=== PATIENT | female | born 1985 | race Caucasian/White ===

== ENCOUNTER 2020-01-25 03:05 | Inpatient (IN) | payer BC ==
[~2020-01-25 03:05] MED LIST: Bupivacaine 0.25% 10 ML SDV ONE
--- NOTE | 2020-01-25 08:06 | PCM.LDHP ---
<Amparo Holman R - Last Filed: 01/25/20 09:17> L&D History of Present Illness - General Date of Service: 01/25/20 Admit Problem/Dx: Admission Diagnosis/Problem Admission Diagnosis/Problem Source of Information: Patient History Limitations: Reports: No Limitations - History of Present Illness Introduction:: Lj is a 34-year-old white 6 para 3023 female at 39-3/7 weeks' gestational age with an REINALDO of 01/29/2020 who presents to labor and delivery for induction of labor on the morning of 01/25/2020. Upon examination, her cervix is 3 cm dilated, 80% effaced, -3 station, posterior position. Decision was made to start Pitocin and patient was in agreement. heart rate monitoring shows good variability, good accelerations, and no decelerations. 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 LMP was 04/24/2019 and she had regular cycles prior to becoming . Her average cycles were 31-35 days. No control was utilized at the time of conception. 5 prior outcomes: 01/28/2013 - spontaneous at 6 weeks;12/15/2013 - 8 lbs. 0 oz. baby girl named Svetlana, vaccuum extraction at 41 weeks, 20 hour labor; 10/27/2014 - spontaneous at 12 weeks; 02/11/2016 - 8 lbs. 10 oz. baby boy named Fausto, due to failure to progress and occiput posterior positioning at 40-5/7 weeks, 30 hour labor; 04/15/2018 - 7 lbs. 12 oz. baby boy named Reuben, at 39-1/7 weeks, 17 hour labor. history: LMP was 04/24/2019 with regular cycles. REINALDO of 01/29/2020 supported by early ultrasound at 6-4/7 weeks' gestational age on . Another ultrasound was performed at 20-4/7 weeks' gestational age on 09/16/2019 and showed adequate growth with no abnormalities. Fundal height was consistent with dating throughout the . Lj plans to breast feed after delivery. She is hesitant about an epidural, but would like one if pain becomes intolerable. High risk identified by long distance from hospital, history of miscarriage x2, history of followed by successful . Labs: Blood type is A positive with negative antibody screen. Initial labs showed hemoglobin of 12.4 g/dL and platelets of 203,0000. Rubella nonimmune. RPR was reactive, but follow-up T. pallidum was negative. Gonorrhea and chlamydia screens were negative. Hepatitis B surface antigen and HIV were negative. 1 hour GTT was 118. Second trimester labs showed hemoglobin of 11.3 g/dL and platelets of 171,000. GBS was negative. Past medical history: 1. Eczema Past surgical history: 1. Oral surgery - 2006 2. S/P section - 2015 Allergies: NKDA Current medications: 1. /Iron oral tablet daily 2. Folic acid 400 mcg PO daily Family history: Mother is alive and has a history of hypertension. Father is alive and has a history of hypercholesterolemia. She has 2 brothers who are alive and well. Maternal grandmother is alive and has dementia. She also had a history of type 2 diabetes. Maternal grandfather is from aspiration pneumonia and/or surgical complications at age 82, otherwise healthy. Paternal grandmother in her 50s from breast/ovarian cancer. Paternal grandfather in his 60s due to complications from chronic alcohol use. No family history of bleeding/clotting disorders, anesthesia-related disorders, or -related problems. Social history: Lj is to Giovanni Webber. They live in [place], [place]. She has a college degree and currently works as a teacher. No tobacco, alcohol, or illicit substance use during . - Related Data Allergies/Adverse Reactions: Allergies Allergy/AdvReac Type Severity Reaction Status Date / Time No Known Allergies Allergy Verified 01/25/20 08:27 Home Medications: Home Meds Ferrous Sulfate [Iron] 325 mg PO DAILY 04/14/18 [History] No122/Iron/Folic Acid [ Multi Tablet] 1 each PO DAILY 04/14/18 [History] Past Medical History - Past Health History Medical/Surgical History: Denies Medical/Surgical History Cardiovascular History: Reports: None Respiratory History: Reports: None Gastrointestinal History: Reports: GERD UI [employer] DEVELOPER History: Reports: , Spontaneous Hematologic History: Reports: Anemia Oncologic (Cancer) History: Reports: None Dermatologic History: Reports: Eczema - Past Surgical History HEENT Surgical History: Reports: Oral Surgery Female Surgical History: Reports: Section Social & Family History - Family History Family Medical History: Noncontributory H&P Review of Systems - Review of Systems: Review Of Systems: See Below General: Reports: No Symptoms HEENT: Reports: No Symptoms Pulmonary: Reports: No Symptoms Cardiovascular: Reports: No Symptoms Gastrointestinal: Reports: No Symptoms Genitourinary: Reports: No Symptoms Musculoskeletal: Reports: No Symptoms L&D Exam - Exam Exam: See Below - OB Specific Fundal Height In cm: 39 Contraction Intensity: Mild Movement: Active Heart Tones: Present Heart Rate (FHR) Variability: Moderate (6-25 bmp) Presentation: Vertex - Ribeiro Score Ribeiro Score Cervix Position: Posterior Ribeiro Score Consistency: Soft Ribeiro Score Effacement: >80% Ribeiro Score Dilation: 3-4 cm Ribeiro Score 's Station: -3 Ribeiro Score Total: 7 - Exam General: Alert, Oriented HEENT: Conjunctiva Clear, EOMI, Mucosa Moist & [place], Posterior Pharynx Clear Neck: Supple, Trachea Midline Lungs: Clear to Auscultation, Normal Respiratory Effort Cardiovascular: Regular Rate, Regular Rhythm GI/Abdominal Exam: Soft, Non-Tender, Other (gravid abdomen) Genitourinary: Normal external exam, Normal bimanual exam, Cervical dilitation. No: Cervical discharge, Cervix motion tenderness Back Exam: Normal Inspection Extremities: Normal Inspection, Normal Capillary Refill, Pedal Edema (+trace) Skin: Warm, Dry, Intact - Patient Data Result Diagrams: 01/25/20 08:35 Assessment/Plan Comment:: Assessment: 1Adelfo Calhoun is a 34-year-old white 6 para 3023 female at 39-3/7 weeks' gestational age with an REINALDO of 01/29/2020 who presents for induction of labor 2. Risk factors for : long distance from hospital, history of miscarriage x2, history of due to failure to progress followed by successful 3. GBS negative 4. Rubella nonimmune 5. RPR reactive, T. pallidum nonreactive 6. Patient would like to attempt delivery without an epidural, but she is open to receiving one if pain becomes intolerable. Plan: 1. Induction with Pitocin is discussed including risks and benefits. Patient voices understanding and wishes to proceed. 2. Risks and benefits of explained and patient is in agreement. 3. Regular diet. 4. Routine labor care. 5. RPR and CBC upon admission. 6. Epidural available if patient so chooses. 7. MMR vaccination after delivery. 8. Anticipate vaginal delivery after section. <Jcarlos Leahy - Last Filed: 01/25/20 23:51> L&D History of Present Illness - General Admit Problem/Dx: Patient Status Order with Admit Dx/Problem 01/25/20 08:08 Patient Status [ADT] Routine Admission Diagnosis/Problem Admission Diagnosis/Problem H&P Review of Systems - Review of Systems: Review Of Systems: See Below L&D Exam - Exam Exam: See Below - Vital Signs Vital Signs: Last Vital Signs Temp 36.7 C 01/25/20 08:08 Pulse 80 01/25/20 08:08 Resp 14 01/25/20 08:08 BP 109/70 01/25/20 08:08 Pulse Ox 97 01/25/20 08:08 - Patient Data Lab Results Last 24 hrs: Laboratory Results - last 24 hr 01/25/20 01/25/20 01/25/20 Range/Units 08:20 08:35 08:35 WBC 7.72 (3.98-10.04) K/mm3 RBC 3.68 L (3.98-5.22) M/mm3 Hgb 11.3 (11.2-15.7) gm/dl Hct 34.4 (34.1-44.9) % MCV 93.5 (79.4-94.8) fl MCH 30.7 (25.6-32.2) pg MCHC 32.8 (32.2-35.5) g/dl RDW Std Deviation 49.1 H (36.4-46.3) fL Plt Count 148 L (182-369) K/mm3 MPV 10.7 (9.4-12.3) fl Neut % (Auto) 75.7 H (34.0-71.1) % Lymph % (Auto) 17.9 L (19.3-51.7) % [place] % (Auto) 5.4 (4.7-12.5) % Eos % (Auto) 0.8 (0.7-5.8) Baso % (Auto) 0.1 (0.1-1.2) % Neut # (Auto) 5.84 (1.56-6.13) K/mm3 Lymph # (Auto) 1.38 (1.18-3.74) K/mm3 [place] # (Auto) 0.42 H (0.24-0.36) K/mm3 Eos # (Auto) 0.06 (0.04-0.36) K/mm3 Baso # (Auto) 0.01 (0.01-0.08) K/mm3 RPR Non-reactive (NONREACTIVE) COVID-19 (KARIME) Negative (NEGATIVE) Blood Type Gel Antibody Screen 01/25/20 Range/Units 08:35 WBC (3.98-10.04) K/mm3 RBC (3.98-5.22) M/mm3 Hgb (11.2-15.7) gm/dl Hct (34.1-44.9) % MCV (79.4-94.8) fl MCH (25.6-32.2) pg MCHC (32.2-35.5) g/dl RDW Std Deviation (36.4-46.3) fL Plt Count (182-369) K/mm3 MPV (9.4-12.3) fl Neut % (Auto) (34.0-71.1) % Lymph % (Auto) (19.3-51.7) % [place] % (Auto) (4.7-12.5) % Eos % (Auto) (0.7-5.8) Baso % (Auto) (0.1-1.2) % Neut # (Auto) (1.56-6.13) K/mm3 Lymph # (Auto) (1.18-3.74) K/mm3 [place] # (Auto) (0.24-0.36) K/mm3 Eos # (Auto) (0.04-0.36) K/mm3 Baso # (Auto) (0.01-0.08) K/mm3 RPR (NONREACTIVE) COVID-19 (KARIME) (NEGATIVE) Blood Type A POSITIVE Gel Antibody Screen Negative Result Diagrams: 01/25/20 08:35 Problem List Initiated/Reviewed/Updated: Yes Orders Last 24hrs: Active Orders 24 hr Category Date Time Status Patient Status [ADT] Routine ADT 01/25/20 08:08 Active Activity as Tolerated [RC] PFP Care 01/25/20 08:08 Active Communication Order [RC] ASDIRECTED Care 01/25/20 08:08 Active Communication Order [RC] ASDIRECTED Care 01/25/20 09:31 Active Cooling Warming Measures [RC] ASDIRECTED Care 01/25/20 09:31 Active Heart Tones [RC] ASDIRECTED Care 01/25/20 08:09 Active Notify Provider [RC] ASDIRECTED Care 01/25/20 09:31 Active Notify Provider [RC] ASDIRECTED Care 01/25/20 09:31 Active Notify Provider [RC] PFP Care 01/25/20 08:08 Active Notify Provider [RC] PRN Care 01/25/20 08:08 Active Oxygen Therapy [RC] ASDIRECTED Care 01/25/20 09:31 Active Peripheral IV Care [RC] . DIRECTED Care 01/25/20 08:09 Active Pulse Oximetry [RC] ASDIRECTED Care 01/25/20 09:31 Active Urinary Catheter Assessment [RC] ASDIRECTED Care 01/25/20 08:08 Active Vital Signs [RC] .PRN Care 01/25/20 09:31 Active Vital Signs [RC] PER UNIT ROUTINE Care 01/25/20 08:08 Active Regular Diet [DIET] Diet 01/25/20 Lunch Active Acetaminophen [Tylenol] Med 01/25/20 08:08 Active 650 mg PO Q4H PRN Bupivacaine/fentaNYL/NS [fentaNYL/Bupivacaine/NS 2 MCG- Med 01/25/20 09:31 Active 0.125% 100 ML] 100 ml EPIDUR ASDIRECTED PRN Lactated Ringers [Ringers, Lactated] 1,000 ml Med 01/25/20 08:15 Active IV ASDIRECTED Nalbuphine [Nubain] Med 01/25/20 08:08 Active 10 mg IVPUSH Q2H PRN Ondansetron [Zofran] Med 01/25/20 08:08 Active 4 mg IVPUSH Q4H PRN Oxytocin/Lactated Ringers [Pitocin in LR 10 Units/1,000 Med 01/25/20 08:15 Active ML] 10 unit in 1,000 ml IV .CONTINUOUS Oxytocin/Lactated Ringers [Pitocin in LR 10 Units/1,000 Med 01/25/20 08:15 Active ML] 10 unit in 1,000 ml IV TITRATE Sodium Chloride 0.9% [Saline Flush] Med 01/25/20 08:08 Active 10 ml FLUSH ASDIRECTED PRN diphenhydrAMINE [Benadryl] Med 01/25/20 09:31 Active 25 mg IVPUSH Q6H PRN ePHEDrine [ePHEDrine sulfate] Med 01/25/20 09:31 Active 5 mg IVPUSH ASDIRECTED PRN fentaNYL [Sublimaze] Med 01/25/20 09:31 Active 100 mcg EPIDUR Q3H PRN Electronic Heart Tones Ext w TOCO [WOMSER] Oth 01/25/20 08:08 Ordered Routine Electronic Heart Tones Internal [WOMSER] Per Unit Oth 01/25/20 08:08 Ordered Routine Peripheral IV Insertion Adult [OM.PC] Routine Oth 01/25/20 08:08 Ordered Resuscitation Status Routine Resus Stat 01/25/20 08:08 Ordered Medication Orders Acetaminophen (Tylenol) 650 mg PO Q4H PRN PRN Reason: Pain (Mild 1-3) and fever Diphenhydramine HCl (Benadryl) 25 mg IVPUSH Q6H PRN PRN Reason: pruritis Ephedrine Sulfate (Ephedrine Sulfate) 5 mg IVPUSH ASDIRECTED PRN PRN Reason: Hypotension Fentanyl (Sublimaze) 100 mcg EPIDUR Q3H PRN PRN Reason: Pain Last Admin: 01/25/20 15:10 Dose: 100 mcg Documented by: [id number] Fentanyl/Bupivacaine HCl (Fentanyl/Bupivacaine/Ns 2 Mcg-0.125% 100 Ml) 100 ml EPIDUR ASDIRECTED PRN PRN Reason: Pain Last Admin: 01/25/20 15:11 Dose: 100 ml Documented by: [email or web address] Oxytocin/Lactated Ringer's (Pitocin In Lr 10 Units/1,000 Ml) 10 unit in 1,000 mls @ 12 mls/hr IV TITRATE IVELISSE; Protocol Last Titration: 01/25/20 20:45 Dose: 13 munits/min, 78 mls/hr Documented by: Titration: 01/25/20 20:15 Dose: 12 munits/min, 72 mls/hr Documented by: Titration: 01/25/20 19:30 Dose: 11 munits/min, 66 mls/hr Documented by: Titration: 01/25/20 18:30 Dose: 10 munits/min, 60 mls/hr Documented by: Titration: 01/25/20 17:32 Dose: 8 munits/min, 48 mls/hr Documented by: [id number] Titration: 01/25/20 14:56 Dose: 6 munits/min, 36 mls/hr Documented by: Titration: 01/25/20 11:45 Dose: 10 munits/min, 60 mls/hr Documented by: Titration: 01/25/20 11:00 Dose: 8 munits/min, 48 mls/hr Documented by: Titration: 01/25/20 10:15 Dose: 6 munits/min, 36 mls/hr Documented by: [email or web address] Titration: 01/25/20 09:40 Dose: 4 munits/min, 24 mls/hr Documented by: [id number] Admin: 01/25/20 08:33 Dose: 2 munits/min, 12 mls/hr Documented by: [id number] Oxytocin/Lactated Ringer's (Pitocin In Lr 10 Units/1,000 Ml) 10 unit in 1,000 mls @ 500 mls/hr IV .CONTINUOUS IVELISSE; Protocol Lactated Ringer's (Ringers, Lactated) 1,000 mls @ 100 mls/hr IV ASDIRECTED IVELISSE Last Admin: 01/25/20 21:17 Dose: 100 mls/hr Documented by: Infusion: 01/25/20 21:17 Dose: 100 mls/hr Documented by: Admin: 01/25/20 17:31 Dose: 100 mls/hr Documented by: [id number] Infusion: 01/25/20 17:31 Dose: 100 mls/hr Documented by: Admin: 01/25/20 15:09 Dose: 100 mls/hr Documented by: Infusion: 01/25/20 15:09 Dose: 100 mls/hr Documented by: [id number] Admin: 01/25/20 08:33 Dose: 100 mls/hr Documented by: [id number] Nalbuphine HCl (Nubain) 10 mg IVPUSH Q2H PRN PRN Reason: Pain Ondansetron HCl (Zofran) 4 mg IVPUSH Q4H PRN PRN Reason: Nausea/Vomiting Sodium Chloride (Saline Flush) 10 ml FLUSH ASDIRECTED PRN PRN Reason: Keep Vein Open
[2020-01-25] MEDS ORDERED: Nalbuphine 10 MG/ML Syringe IVPUSH PRN (08:08)
[2020-01-25] MEDS ORDERED: Acetaminophen 325 MG Tab PO PRN (08:08)
[2020-01-25] MEDS ORDERED: Lidocaine 1% 50 ML MDV INJECT ONE (08:08)
[2020-01-25] MEDS ORDERED: Ondansetron 4 MG/2 ML SDV IVPUSH PRN (08:08)
[2020-01-25] MEDS ORDERED: Sodium Chloride 0.9% 10 ML Syringe FLUSH PRN (08:08)
[2020-01-25] MEDS ORDERED: Oxytocin/Lactated Ringers 10 UNIT/1,000 ML BAG IV SCH ×2 (08:15)
[2020-01-25] MEDS: Lactated Ringers 1,000 ML IV SCH ×4 (08:33→21:17)
[2020-01-25] MEDS ORDERED: ePHEDrine 50 MG/ML SDV IVPUSH PRN (09:31)
[2020-01-25] MEDS ORDERED: Bupivacaine/fentaNYL/NS 100 ML Bag EPIDUR PRN (09:31)
[2020-01-25] MEDS ORDERED: diphenhydrAMINE 50 MG/ML SDV IVPUSH PRN (09:31)
[2020-01-25] MEDS ORDERED: fentaNYL 100 MCG/2 ML SDV EPIDUR PRN (09:31)
--- NOTE | 2020-01-25 15:35 | PCM.PREANE ---
Preanesthetic Assessment - Procedure Proposed Procedure: Epidural - Anesthesia/Transfusion/Family Hx Anesthesia History: Prior Anesthesia Without Reaction Family History of Anesthesia Reaction: No Transfusion History: No Prior Transfusion(s) - Review of Systems General: Fatigue Pulmonary: No Symptoms Cardiovascular: No Symptoms Gastrointestinal: Abdominal Pain (labor) Neurological: No Symptoms Other: Reports: None - Physical Assessment Vital Signs: Last Vital Signs Temp 36.7 C 01/25/20 08:08 Pulse 80 01/25/20 08:08 Resp 14 01/25/20 08:08 BP 109/70 01/25/20 08:08 Pulse Ox 97 01/25/20 08:08 Height: 1.68 m Weight: 81.828 kg ASA Class: 2 Mental Status: Alert & Oriented x3 Airway Class: Mallampati = 1 Dentition: Reports: Normal Dentition Thyro-Mental Finger Breadths: 3 Mouth Opening Finger Breadths: 3 ROM/Head Extension: Full Lungs: Clear to Auscultation, Normal Respiratory Effort Cardiovascular: Regular Rate, Regular Rhythm - Lab Values: Laboratory Last Values WBC 7.72 K/mm3 (3.98-10.04) 01/25/20 08:35 RBC 3.68 M/mm3 (3.98-5.22) L 01/25/20 08:35 Hgb 11.3 gm/dl (11.2-15.7) 01/25/20 08:35 Hct 34.4 % (34.1-44.9) 01/25/20 08:35 MCV 93.5 fl (79.4-94.8) 01/25/20 08:35 MCH 30.7 pg (25.6-32.2) 01/25/20 08:35 MCHC 32.8 g/dl (32.2-35.5) 01/25/20 08:35 RDW Std Deviation 49.1 fL (36.4-46.3) H 01/25/20 08:35 Plt Count 148 K/mm3 (182-369) L 01/25/20 08:35 MPV 10.7 fl (9.4-12.3) 01/25/20 08:35 Neut % (Auto) 75.7 % (34.0-71.1) H 01/25/20 08:35 Lymph % (Auto) 17.9 % (19.3-51.7) L 01/25/20 08:35 [place] % (Auto) 5.4 % (4.7-12.5) 01/25/20 08:35 Eos % (Auto) 0.8 (0.7-5.8) 01/25/20 08:35 Baso % (Auto) 0.1 % (0.1-1.2) 01/25/20 08:35 Neut # (Auto) 5.84 K/mm3 (1.56-6.13) 01/25/20 08:35 Lymph # (Auto) 1.38 K/mm3 (1.18-3.74) 01/25/20 08:35 [place] # (Auto) 0.42 K/mm3 (0.24-0.36) H 01/25/20 08:35 Eos # (Auto) 0.06 K/mm3 (0.04-0.36) 01/25/20 08:35 Baso # (Auto) 0.01 K/mm3 (0.01-0.08) 01/25/20 08:35 COVID-19 (KARIME) Negative (NEGATIVE) 01/25/20 08:20 Blood Type A POSITIVE 01/25/20 08:35 Gel Antibody Screen Negative 01/25/20 08:35 - Allergies Allergies/Adverse Reactions: Allergies Allergy/AdvReac Type Severity Reaction Status Date / Time No Known Allergies Allergy Verified 01/25/20 08:27 - Anesthesia Plan Pre-Op Medication Ordered: None - Acknowledgements Anesthesia Type Planned: Epidural Pt an Appropriate Candidate for the Planned Anesthesia: Yes Alternatives and Risks of Anesthesia Discussed w Pt/Guardian: Yes Pt/Guardian Understands and Agrees with Anesthesia Plan: Yes PreAnesthesia Questionnaire - Past Health History Medical/Surgical History: Denies Medical/Surgical History Cardiovascular History: Reports: None Respiratory History: Reports: None Gastrointestinal History: Reports: GERD [employer]KER History: Reports: , Spontaneous Hematologic History: Reports: Anemia Oncologic (Cancer) History: Reports: None Dermatologic History: Reports: Eczema - Past Surgical History HEENT Surgical History: Reports: Oral Surgery Female Surgical History: Reports: Section - SUBSTANCE USE Smoking Status *Q: Never Smoker Second Hand Smoke Exposure: No Recreational Drug Use History: No - HOME MEDS Home Medications: Home Meds Ferrous Sulfate [Iron] 325 mg PO DAILY 04/14/18 [History] No122/Iron/Folic Acid [ Multi Tablet] 1 each PO DAILY 04/14/18 [History] - CURRENT (IN HOUSE) MEDS Current Meds: Current Medications Acetaminophen (Tylenol) 650 mg PO Q4H PRN PRN Reason: Pain (Mild 1-3) and fever Diphenhydramine HCl (Benadryl) 25 mg IVPUSH Q6H PRN PRN Reason: pruritis Ephedrine Sulfate (Ephedrine Sulfate) 5 mg IVPUSH ASDIRECTED PRN PRN Reason: Hypotension Fentanyl (Sublimaze) 100 mcg EPIDUR Q3H PRN PRN Reason: Pain Last Admin: 01/25/20 15:10 Dose: 100 mcg Documented by: Fentanyl/Bupivacaine HCl (Fentanyl/Bupivacaine/Ns 2 Mcg-0.125% 100 Ml) 100 ml EPIDUR ASDIRECTED PRN PRN Reason: Pain Last Admin: 01/25/20 15:11 Dose: 100 ml Documented by: Oxytocin/Lactated Ringer's (Pitocin In Lr 10 Units/1,000 Ml) 10 unit in 1,000 mls @ 12 mls/hr IV TITRATE IVELISSE; Protocol Last Admin: 01/25/20 08:33 Dose: 2 munits/min, 12 mls/hr Documented by: Oxytocin/Lactated Ringer's (Pitocin In Lr 10 Units/1,000 Ml) 10 unit in 1,000 mls @ 500 mls/hr IV .CONTINUOUS IVELISSE; Protocol Lactated Ringer's (Ringers, Lactated) 1,000 mls @ 100 mls/hr IV ASDIRECTED IVELISSE Last Admin: 01/25/20 15:09 Dose: 100 mls/hr Documented by: Nalbuphine HCl (Nubain) 10 mg IVPUSH Q2H PRN PRN Reason: Pain Ondansetron HCl (Zofran) 4 mg IVPUSH Q4H PRN PRN Reason: Nausea/Vomiting Sodium Chloride (Saline Flush) 10 ml FLUSH ASDIRECTED PRN PRN Reason: Keep Vein Open Discontinued Medications Lidocaine HCl (Xylocaine 1%) 50 ml INJECT ONETIME ONE Stop: 01/25/20 08:09
--- NOTE | 2020-01-26 00:03 | PCM.SN.2 ---
- Free Text/Narrative Note: Delivery note: Lj is a 34-year-old white 6 para 3023 female at 39-3/7 weeks' gestational age with an REINALDO of 01/29/2020 who presented to labor and delivery for induction of labor on the morning of 01/25/2020. When Pitocin induction of labor and after approximately 4 hours but they had done well applied to the cervix. At that time she underwent artificial rupture membranes with resultant clear amniotic fluid. Contractions develop and Pitocin actually was decreased. She made slow but steady progress and at approximately 200 hours on 01/25/2020 she became completely dilated and started pushing. The progress is very slow and it was determined that the baby was in a right occiput posterior position. After approximately 1 hour and 20 minutes discussion was held with her as to using vacuum extraction to facilitate delivery. The risks and benefits were discussed with her. She had a previous vacuum extraction delivery. She aware of these risks and gave verbal consent. Vacuum extraction delivery was then performed and with 1 contraction the baby delivered at 2322 hrs. on 01/25/2020. Nuchal cord was noted x1, was loose and was reduced over the baby's head. The anterior shoulder was then delivered as was the posterior shoulder. The baby was completely delivered and placed on mom's abdomen. The cord was allowed to pulsate for 1 to 1-1/2 minutes and then was clamped x2 and cut by the baby's father Giovanni. The Pitocin was increased to 500 cc an hour to facilitate increase in uterine tone decrease likelihood of bleeding. The baby's name is Zenon Obando. After allowing the cord to pulsate it was then clamped and 3 vessels were noted. Cord blood was obtained. He was taken to the monitor for further evaluation and stimulation. Baby weighed 4120 g (9 pounds 1.3 ounces), was 21.0 inches in length and had Apgars of 6 and 9. The patient was noted to have a second-degree perineal laceration which was repaired with 3-0 Monocryl in a routine fashion. Epidural analgesia was used for perineal laceration repair anesthesia. Patient tolerated the procedure well. Placenta delivered at 2335 hrs. in a Bermudez presentation, appeared intact and complete and was discarded per patient desire. Was found to be firm. Estimated blood loss was 200 cc. Patient plans to breast-feed. Condition: Good
[2020-01-26] MEDS ORDERED: Measles, Mumps & Rubella Vaccine 0.5 ML SDV SUBCUT ONE (00:38)
[2020-01-26] MEDS ORDERED: Acetaminophen 325 MG Tab PO PRN (00:38)
[2020-01-26] MEDS ORDERED: Benzocaine/Menthol 20%-0.5% Spray 56 GM Canister TOP PRN (00:38)
[2020-01-26] MEDS ORDERED: Docusate Sodium 100 MG Cap PO PRN (00:38)
[2020-01-26] MEDS ORDERED: Witch Hazel Medicated Pads 40/Jar TOP PRN (00:38)
[2020-01-26] MEDS: Lactated Ringers 1,000 ML IV SCH (00:57)
[2020-01-26] MEDS: Ibuprofen 600 MG Tab PO PRN ×3 (00:59→13:09)
--- NOTE | 2020-01-26 07:41 | PCM48HPAN ---
Post Anesthesia Note - EVALUATION WITHIN 48HRS OF ANESTHETIC Vital Signs in Normal Range: Yes Patient Participated in Evaluation: Yes Respiratory Function Stable: Yes Airway Patent: Yes Cardiovascular Function Stable: Yes Hydration Status Stable: Yes Pain Control Satisfactory: Yes Nausea and Vomiting Control Satisfactory: Yes Mental Status Recovered: Yes Vital Signs: Last Vital Signs Temp 36.7 C 01/26/20 05:46 Pulse 61 01/26/20 05:46 Resp 14 01/26/20 05:46 BP 110/68 01/26/20 05:46 Pulse Ox 96 01/26/20 05:46
[2020-01-26] MEDS: Prenatal Multivitamin with Calcium/Folic Acid/Iron Tab PO SCH (14:42)
--- NOTE | 2020-01-26 16:57 | PCM.SN.2 ---
- Free Text/Narrative Note: note: Patient is doing well in the period. Minimal lochia, voiding well, ambulated without problems. Nursing without concerns. Patient is afebrile, vital signs are stable Abdomen is flat, soft, uterus is below the umbilicus and is firm and nontender. Legs are nontender. Assessment: recovery going well. Plan: Routine care. Patient be discharged home within the next 24-48 hours.
--- NOTE | 2020-01-27 06:23 | PCM.DCSUM1 ---
Discharge Summary - Hospital Course Free Text/Narrative:: Lj is a 34-year-old white 6 para 3023 female at 39-3/7 weeks' gestational age with an REINALDO of 01/29/2020 who presented to labor and delivery for induction of labor on the morning of 01/25/2020. When Pitocin induction of labor and after approximately 4 hours but they had done well applied to the cervix. At that time she underwent artificial rupture membranes with resultant clear amniotic fluid. Contractions develop and Pitocin actually was decreased. She made slow but steady progress and at approximately 200 hours on 01/25/2020 she became completely dilated and started pushing. The progress is very slow and it was determined that the baby was in a right occiput posterior position. After approximately 1 hour and 20 minutes discussion was held with her as to using vacuum extraction to facilitate delivery. The risks and benefits were discussed with her. She had a previous vacuum extraction delivery. She aware of these risks and gave verbal consent. Vacuum extraction delivery was then performed and with 1 contraction the baby d elivered at 2322 hrs. on 01/25/2020. Nuchal cord was noted x1, was loose and was reduced over the baby's head. The anterior shoulder was then delivered as was the posterior shoulder. The baby was completely delivered and placed on mom's abdomen. The cord was allowed to pulsate for 1 to 1-1/2 minutes and then was clamped x2 and cut by the baby's father Giovanni. The Pitocin was increased to 500 cc an hour to facilitate increase in uterine tone decrease likelihood of bleeding. The baby's name is Zenon Obando. After allowing the cord to pulsate it was then clamped and 3 vessels were noted. Cord blood was obtained. He was taken to the monitor for further evaluation and stimulation. Baby weighed 4120 g (9 pounds 1.3 ounces), was 21.0 inches in length and had Apgars of 6 and 9. The patient was noted to have a second-degree perineal laceration which was repaired with 3-0 Monocryl in a routine fashion. Epidural analgesia was used for perineal laceration repair anesthesia. Patient tolerated the procedure well. Placenta delivered at 2335 hrs. in a Bermudez presentation, appeared intact and complete and was discarded per patient desire. Was found to be firm. Estimated blood loss was 200 cc. Patient has done just fine. She is ambulating well, has minimal lochia, is nursing without problems and is voiding without concerns. Patient is desiring discharge home. Condition: Good Diagnosis: Stroke: No - Discharge Data Discharge Date: 01/27/20 Discharge Disposition: Home, Self-Care 01 Condition: Good - Referral to Home Health Primary Care Physician: Jcarlos Leahy MD - Patient Instructions Diet: Regular Diet as Tolerated (Nursing diet with increased calories and calcium as recommended) Activity: As Tolerated (No intercourse or tampons until bleeding resolves) Driving: May Drive Today Showering/Bathing: May Shower Showering/Bathing, Other: May take a bath Notify Provider of: Fever, Increased Pain, Swelling and Redness, Nausea and/or Vomiting - Discharge Plan Home Medications: Home Meds Ferrous Sulfate [Iron] 325 mg PO DAILY 04/14/18 [History] No122/Iron/Folic Acid [ Multi Tablet] 1 each PO DAILY 04/14/18 [History] Acetaminophen [Tylenol] 650 mg PO Q4H PRN tablet 01/27/20 [Rx] Ibuprofen [Motrin] 600 mg PO Q4H PRN tablet 01/27/20 [Rx] Referrals: Jcarlos Leahy MD [Primary Care Provider] - - Discharge Summary/Plan Comment DC Time >30 min.: No Discharge Summary/Plan Comment: Discharge instructions: 1. Discharge home 2. Diet, activity and follow-up discussed with patient. Recommend nursing diet with increased calories and calcium. 3. Precautions given concern increased pain, bleeding, temperature, signs/symptoms of DVT/PE. 4. Medications per home medication was printed, discussed with and given to the patient. 5. Return to clinic-Dr. Leahy-[place], [place] in approximately 4 weeks. Diagnosis: Term -delivered Condition: Good - Patient Data Vitals - Most Recent: Last Vital Signs Temp 36.7 C 01/27/20 03:51 Pulse 55 L 01/27/20 03:51 Resp 14 01/27/20 03:51 BP 115/65 01/27/20 03:51 Pulse Ox 96 01/27/20 03:51 Weight - Most Recent: 81.828 kg I&O - Last 24 hours: Intake & Output 01/26/20 01/26/20 01/27/20 14:59 22:59 06:59 Intake Total 120 240 Balance 120 240 Med Orders - Current: Current Medications Acetaminophen (Tylenol) 650 mg PO Q4H PRN PRN Reason: mild pain or fever Benzocaine/Menthol (Dermoplast Pain Relief [place]) 0 gm TOP ASDIRECTED PRN PRN Reason: Perineal Comfort Measure Last Admin: 01/26/20 00:58 Dose: 1 canister Documented by: Docusate Sodium (Colace) 100 mg PO BID PRN PRN Reason: Constipation Last Admin: 01/26/20 05:58 Dose: 100 mg Documented by: Ibuprofen (Motrin) 600 mg PO Q4H PRN PRN Reason: Mild pain or fever Last Admin: 01/26/20 13:09 Dose: 600 mg Documented by: Prenat Multivit/[place]/Iron/Folic Ac ( Plus Iron) 1 each PO DAILY IVELISSE Last Admin: 01/26/20 14:42 Dose: 1 each Documented by: Armaan Stewart (Ethan) 1 pad TOP ASDIRECTED PRN PRN Reason: Perineal Comfort Measure Last Admin: 01/26/20 00:58 Dose: 1 tub Documented by: Discontinued Medications Acetaminophen (Tylenol) 650 mg PO Q4H PRN PRN Reason: Pain (Mild 1-3) and fever Bupivacaine HCl (Sensorcaine-Mpf 0.25%) 10 ml .ROUTE .STK-MED ONE Stop: 01/25/20 00:01 Diphenhydramine HCl (Benadryl) 25 mg IVPUSH Q6H PRN PRN Reason: pruritis Ephedrine Sulfate (Ephedrine Sulfate) 5 mg IVPUSH ASDIRECTED PRN PRN Reason: Hypotension Fentanyl (Sublimaze) 100 mcg EPIDUR Q3H PRN PRN Reason: Pain Last Admin: 01/25/20 15:10 Dose: 100 mcg Documented by: Fentanyl/Bupivacaine HCl (Fentanyl/Bupivacaine/Ns 2 Mcg-0.125% 100 Ml) 100 ml EPIDUR ASDIRECTED PRN PRN Reason: Pain Last Admin: 01/25/20 15:11 Dose: 100 ml Documented by: Oxytocin/Lactated Ringer's (Pitocin In Lr 10 Units/1,000 Ml) 10 unit in 1,000 mls @ 12 mls/hr IV TITRATE IVELISSE; Protocol Last Titration: 01/25/20 21:30 Dose: 14 munits/min, 84 mls/hr Documented by: Oxytocin/Lactated Ringer's (Pitocin In Lr 10 Units/1,000 Ml) 10 unit in 1,000 mls @ 500 mls/hr IV .CONTINUOUS IVELISSE; Protocol Lactated Ringer's (Ringers, Lactated) 1,000 mls @ 100 mls/hr IV ASDIRECTED IVELISSE Last Admin: 01/26/20 00:57 Dose: 100 mls/hr Documented by: Lidocaine HCl (Xylocaine 1%) 50 ml INJECT ONETIME ONE Stop: 01/25/20 08:09 Last Admin: 01/26/20 12:30 Dose: Not Given Documented by: Measles/Mumps/Rubella Vaccine Live (M-M-R Ii Vaccine) 0.5 ml SUBCUT .ONCE ONE Stop: 01/26/20 00:39 Last Admin: 01/26/20 01:02 Dose: Not Given Documented by: Nalbuphine HCl (Nubain) 10 mg IVPUSH Q2H PRN PRN Reason: Pain Ondansetron HCl (Zofran) 4 mg IVPUSH Q4H PRN PRN Reason: Nausea/Vomiting Sodium Chloride (Saline Flush) 10 ml FLUSH ASDIRECTED PRN PRN Reason: Keep Vein Open
[2020-01-27 14:33] VITALS: BP 131/74; PULSE 70
[2020-01-27] MEDS: Prenatal Multivitamin with Calcium/Folic Acid/Iron Tab PO SCH (14:51)
== END 2020-01-27 10:25 | disposition home or self-care (01) | DRG 560 ==
LOC: JD.OB 07:01 → OBSVTOIN 23:46 → JD.OB 23:58
PROVIDERS: ADMIT Obstetrics & Gynecology; ATTEND Obstetrics & Gynecology
PROC: 10D07Z6 Extraction of Products of Conception, Vacuum, Via Natural or Artificial Opening (ICD-10-PCS; principal; 2020-01-25)
PROC: 10907ZC Drainage of Amniotic Fluid, Therapeutic from Products of Conception, Via Natural or Artificial Opening (ICD-10-PCS; 2020-01-25)
PROC: 3E033VJ Introduction of Other Hormone into Peripheral Vein, Percutaneous Approach (ICD-10-PCS; 2020-01-25)
PROC: 0KQM0ZZ Repair Perineum Muscle, Open Approach (ICD-10-PCS; 2020-01-25)
PROC: 3E0R3BZ Introduction of Anesthetic Agent into Spinal Canal, Percutaneous Approach (ICD-10-PCS; 2020-01-25)
PROC: 00HU33Z Insertion of Infusion Device into Spinal Canal, Percutaneous Approach (ICD-10-PCS; 2020-01-25)
DX: O69.81X0 Labor and delivery complicated by cord around neck, without compression, not applicable or unspecified (principal); O99.62 Diseases of the digestive system complicating childbirth; K21.9 Gastro-esophageal reflux disease without esophagitis; O99.02 Anemia complicating childbirth; D64.9 Anemia, unspecified; O70.1 Second degree perineal laceration during delivery; Z37.0 Single live birth; Z11.59 Encounter for screening for other viral diseases; Z3A.39 39 weeks gestation of pregnancy
CPT/HCPCS: 01967; 36415; 51702; 59025; 59409; 85025; 86592; 86850; 86900; 86901; A9270-GY; J2590; J3010; J3490; J7120; U0002